=== PATIENT | female | born 1950 | race Caucasian/White ===

== ENCOUNTER → 2023-03-31 08:48 | Outpatient (REF) | payer MEDICARE, OTHER, SELFPAY ==
[2023-03-31 10:02] LABS: ALT (SGPT) 23 U/L (0-35); AST (SGOT) 26 U/L (14-36); Albumin 4.6 g/dl (3.5-5.0); Alkaline Phosphatase 76 U/L (38-126); Blood Urea Nitrogen 17 mg/dl (7-17); Calcium 9.5 mg/dl (8.4-10.2); Carbon Dioxide 26 mmol/L (22-30); Chloride 102 mmol/L (98-107); Glucose 107 mg/dl (70-99); Potassium 4.1 mmol/L (3.5-5.1); Sodium 135 mmol/L (135-145); Total Bilirubin 0.7 mg/dl (0.2-1.3); Total Protein 7.5 g/dl (6.3-8.2); eGFR > 60.00
[2023-03-31 12:13] LABS: Glycohemoglobin (HgbA1c) 6.3 % (4.0-5.6)
== END ==
LOC: REG 08:48
PROVIDERS: ATTENDING PHYSICIAN Physician Assistant Medical
DX: E78.2 Mixed hyperlipidemia (principal); I10 Essential (primary) hypertension; R73.01 Impaired fasting glucose
CPT/HCPCS: 36415; 80053; 83036

== ENCOUNTER → 2023-09-27 07:35 | Outpatient (REF) | payer MEDICARE, OTHER, SELFPAY ==
[2023-09-27 09:05] LABS: ALT (SGPT) 20 U/L (0-35); AST (SGOT) 23 U/L (14-36); Albumin 4.6 g/dl (3.5-5.0); Alkaline Phosphatase 93 U/L (38-126); Blood Urea Nitrogen 17 mg/dl (7-17); Calcium 9.6 mg/dl (8.4-10.2); Carbon Dioxide 25 mmol/L (22-30); Chloride 102 mmol/L (98-107); Glucose 120 mg/dl (70-99); HDL Cholesterol 44 mg/dl; LDL Cholesterol, Calculated 93 mg/dl; Potassium 4.3 mmol/L (3.5-5.1); Sodium 135 mmol/L (135-145); Total Bilirubin 0.7 mg/dl (0.2-1.3); Total Cholesterol 168 mg/dl (50-199); Total Protein 7.4 g/dl (6.3-8.2); Triglyceride 159 mg/dl (10-149); Very Low Density Lipoprotein 31 mg/dl (0-30); eGFR > 60.00
[2023-09-27 11:12] LABS: Glycohemoglobin (HgbA1c) 6.1 % (4.0-5.6)
== END ==
LOC: REG 07:35
PROVIDERS: ATTENDING PHYSICIAN Physician Assistant Medical
DX: E78.2 Mixed hyperlipidemia (principal); I10 Essential (primary) hypertension; R73.01 Impaired fasting glucose; K21.9 Gastro-esophageal reflux disease without esophagitis
CPT/HCPCS: 36415; 80053; 80061; 83036

== ENCOUNTER → 2024-03-14 08:05 | Outpatient (REF) | payer MEDICARE, OTHER, SELFPAY ==
[2024-03-14 09:22] LABS: % Basophils 0.9 % (0-2); % Eosinophils 2.9 % (0-6); % Immature Granulocytes 0.3 % (0-0.5); % Monocytes 6.1 % (1.7-9.3); % Neutrophils 67.8 % (42.2-75.2); Absolute Basophils 0.1 10^3/uL (0-0.2); Absolute Eosinophils 0.3 10^3/uL (0-0.7); Absolute Lymphocytes 2.1 10^3/uL (1.2-3.4); Absolute Monocytes 0.6 10^3/uL (0.1-0.6); Absolute Neutrophils 6.5 10^3/uL (1.4-6.5); Hematocrit 43.2 % (37.0-47.0); Hemoglobin 14.7 g/dL (12.0-16.0); Mean Corpuscular Hgb 29.6 pg (27.0-31.0); Mean Corpuscular Volume 86.9 fL (81.0-99.0); Mean Platelet Volume 10.2 fL (7.4-10.4); Nucleated Red Blood Cells % 0 %; Platelet Count 316 10^3/uL (130-400); Red Blood Cell Count 4.97 10^6/uL (4.20-5.40); Red Cell Dist. Width 12.9 % (11.5-14.5); White Blood Cell Count 9.6 10^3/uL (4.8-10.8)
[2024-03-14 09:56] LABS: Glycohemoglobin (HgbA1c) 6.2 % (4.0-5.6)
[2024-03-14 10:38] LABS: ALT (SGPT) 22 U/L (0-35); AST (SGOT) 23 U/L (14-36); Albumin 4.6 g/dl (3.5-5.0); Alkaline Phosphatase 86 U/L (38-126); Blood Urea Nitrogen 17 mg/dl (7-17); Calcium 9.6 mg/dl (8.4-10.2); Carbon Dioxide 27 mmol/L (22-30); Chloride 100 mmol/L (98-107); Glucose 119 mg/dl (70-99); HDL Cholesterol 52 mg/dl; LDL Cholesterol, Calculated 66 mg/dl; Potassium 4.4 mmol/L (3.5-5.1); Sodium 140 mmol/L (135-145); Total Bilirubin 0.6 mg/dl (0.2-1.3); Total Cholesterol 146 mg/dl (50-199); Total Protein 7.7 g/dl (6.3-8.2); Triglyceride 142 mg/dl (10-149); Very Low Density Lipoprotein 28 mg/dl (0-30); eGFR > 60.00
[2024-03-14 11:07] LABS: TSH 3.76 uIU/ml (0.47-4.68); TSH Reflex To Free T4 3.76 uIU/ml (0.47-4.68)
[2024-03-14 23:47] LABS: IgA 271 mg/dl (70-400)
[2024-03-16 07:13] LABS: tTG IgA Antibody <1.02 FLU (0.00-4.99)
== END ==
LOC: REG 08:05
PROVIDERS: ATTENDING PHYSICIAN Internal Medicine Gastroenterology; FAMILY PHYSICIAN Physician Assistant Medical
DX: K21.9 Gastro-esophageal reflux disease without esophagitis (principal); I10 Essential (primary) hypertension; R73.01 Impaired fasting glucose; E78.2 Mixed hyperlipidemia; E04.1 Nontoxic single thyroid nodule; R19.7 Diarrhea, unspecified
CPT/HCPCS: 36415; 80053; 80061; 82784; 83036; 84443; 85025; 86364

== ENCOUNTER → 2024-03-15 10:54 | Outpatient (REF) | payer MEDICARE, OTHER, SELFPAY ==
[2024-03-17 15:35] LABS: Calprotectin, Fecal 61 ug/g (<=49)
== END ==
LOC: REG 10:54
PROVIDERS: ATTENDING PHYSICIAN Internal Medicine Gastroenterology; FAMILY PHYSICIAN Physician Assistant Medical
DX: R19.7 Diarrhea, unspecified (principal)
CPT/HCPCS: 83993; 87328; 87329

== ENCOUNTER 2024-03-19 06:39 | Day surgery (SDC) | payer MEDICARE, OTHER, SELFPAY | END 2024-03-19 12:59 | disposition home or self-care (01) | LOC: GI 06:39 | PROVIDERS: ATTENDING PHYSICIAN Internal Medicine Gastroenterology | DX: Z12.11 Encounter for screening for malignant neoplasm of colon (principal); K64.0 First degree hemorrhoids; K57.30 Diverticulosis of large intestine without perforation or abscess without bleeding; D12.3 Benign neoplasm of transverse colon; D12.2 Benign neoplasm of ascending colon; K63.5 Polyp of colon; R12 Heartburn; K44.9 Diaphragmatic hernia without obstruction or gangrene; K31.7 Polyp of stomach and duodenum; K22.89 Other specified disease of esophagus; K31.89 Other diseases of stomach and duodenum; R19.7 Diarrhea, unspecified; K21.00 Gastro-esophageal reflux disease with esophagitis, without bleeding | CPT/HCPCS: 45385; 45381; 45380; 43239; 88305; 88342 ==

== ENCOUNTER → 2024-10-02 07:39 | Outpatient (REF) | payer MEDICARE, OTHER, SELFPAY ==
[2024-10-02 09:49] LABS: ALT (SGPT) 31 U/L (0-35); AST (SGOT) 24 U/L (14-36); Albumin 4.6 g/dl (3.5-5.0); Alkaline Phosphatase 84 U/L (38-126); Blood Urea Nitrogen 16 mg/dl (7-17); Calcium 9.5 mg/dl (8.4-10.2); Carbon Dioxide 25 mmol/L (22-30); Chloride 104 mmol/L (98-107); Glucose 144 mg/dl (70-99); HDL Cholesterol 44 mg/dl; LDL Cholesterol, Calculated 94 mg/dl; Potassium 4.3 mmol/L (3.5-5.1); Sodium 138 mmol/L (135-145); Total Protein 7.6 g/dl (6.3-8.2); Very Low Density Lipoprotein 38 mg/dl (0-30); eGFR > 60.00
[2024-10-02 10:23] LABS: Glycohemoglobin (HgbA1c) 7.1 % (4.0-5.6)
== END ==
LOC: REG 07:39
PROVIDERS: ATTENDING PHYSICIAN Physician Assistant Medical
DX: E78.2 Mixed hyperlipidemia (principal); I10 Essential (primary) hypertension; R73.01 Impaired fasting glucose
CPT/HCPCS: 36415; 80053; 80061; 83036